=== PATIENT | female | born 1995 | race Caucasian/White ===

== ENCOUNTER 2018-06-21 13:24 | Emergency (ER) | payer OTHER ==
[~2018-06-21] VITALS: Ht 170.2 cm; Wt 61.4 kg
[2018-06-21] MEDS ORDERED: METOCLOPRAMIDE 10 MG TAB PO ONE (14:00)
--- NOTE | 2018-06-21 14:17 | REP ---
CT Head without contrast HISTORY: Head injury COMPARISON: None There is no intraparenchymal hemorrhage, acute infarct, mass or midline shift. The ventricular system is normal in appearance. There is no extra cerebral collection. There is no fracture. The visualized sinuses are clear. IMPRESSION: There is no intracranial lesion. Electronically Signed by Brian Zabala MD 06/21/2018 02:08 P
[2018-06-21] MEDS ORDERED: REGL10TA6 PO (14:18)
[2018-06-21] MEDS ORDERED: IBUP-1022 PO (14:18)
--- NOTE | 2018-06-21 14:21 | REP ---
CT cervical spine without contrast HISTORY: Injury COMPARISON: None There is no acute fracture or subluxation. There is no disc bulge or herniation. The spinal canal and neural foramina are patent. The intervertebral discs and vertebral bodies are normal in height. IMPRESSION: There is no acute fracture or subluxation. Electronically Signed by Brian Zabala MD 06/21/2018 02:12 P
[2018-06-21 14:37] VITALS: BP 103/67
== END 2018-06-21 14:45 | disposition home or self-care (01) ==
LOC: M ED 13:24
DX: S00.93XA Contusion of unspecified part of head, initial encounter (principal); S13.4XXA Sprain of ligaments of cervical spine, initial encounter; W22.09XA Striking against other stationary object, initial encounter; Y92.330 Ice skating rink (indoor) (outdoor) as the place of occurrence of the external cause; Y93.22 Activity, ice hockey; R51 Headache; R11.0 Nausea